=== PATIENT | female | born 1935 | race Caucasian/White ===

== ENCOUNTER → 2017-03-06 | Outpatient (CLI) | payer MEDICARE ==
[~2017-03-06] MED LIST: BUSP5 PO; CYCL10 PO; ESCI10 PO; ONDA4ODT MM; PANT40 PO
[2017-03-06 20:28] LABS: BASOPHILS ABSOLUTE AUTO 0.02 K/mm3 (0.00-0.23); BASOPHILS PERCENT AUTO 0 % (0-2); EOSINOPHILS ABSOLUTE AUTO 0.15 K/mm3 (0.00-0.68); EOSINOPHILS PERCENT AUTO 3 % (0-6); Hematocrit 28.9 % (33.0-51.0); Hemoglobin 9.1 g/dL (11.5-16.0); IMMATURE GRAN ABSOLUTE AUTO 0.01 K/mm3 (0.00-0.10); IMMATURE GRAN PERCENT AUTO 0 % (0-1); LYMPHOCYTES ABSOLUTE AUTO 1.74 K/mm3 (0.84-5.20); LYMPHOCYTES PERCENT AUTO 39 % (21-46); MONOCYTES ABSOLUTE AUTO 0.44 K/mm3 (0.16-1.47); MONOCYTES PERCENT AUTO 10 % (4-13); Mean Corpuscular HGB 26.9 pg (26.0-34.0); Mean Corpuscular HGB Conc 31.5 g/dL (31.5-36.5); Mean Corpuscular Volume 86 fL (80-100); Mean Platelet Volume 10.3 fL (9.1-12.4); NEUTROPHILS ABSOLUTE AUTO 2.13 K/mm3 (1.96-9.15); NEUTROPHILS PERCENT AUTO 48 % (41-73); Platelet Count 292 K/mm3 (150-400); RDW Coefficient Variation 14.4 % (11.7-14.2); RDW Standard Deviation 45.3 fL (35.1-46.3); Red Blood Cell Count 3.38 M/mm3 (3.80-5.20); White Blood Cell Count 4.49 K/mm3 (4.00-11.30)
[2017-03-06 21:12] LABS: Alanine Aminotransfer (ALT/SGP 22 U/L (12-78); Albumin, Blood 3.8 g/dL (3.4-5.0); Alk Phos 85 U/L (50-136); Anion Gap 10 mmol/L (6-16); Aspartate Aminotrans (AST/SGOT 18 U/L (12-37); Bilirubin, Total 0.3 mg/dL (0.1-1.0); Blood Urea Nitrogen 15 mg/dL (8-24); Bun/Creatinine Ratio 24.5 (12.0-20.0); CO2, Blood 24 mmol/L (21-32); Calcium, Blood 9.2 mg/dL (8.5-10.1); Chloride, Blood 107 mmol/L (98-108); Creatinine, Blood 0.61 mg/dL (0.40-1.00); Globulin, Blood 3.9 g/dL (2.2-4.0); Glomerular Filtration Rate >60 (60-); Glucose, Blood 99 mg/dL (70-99); Potassium, Blood 3.9 mmol/L (3.5-5.5); Sodium, Blood 141 mmol/L (136-145); Total Protein, Blood 7.7 g/dL (6.4-8.2)
== END ==
LOC: LAB SHORT 16:29 → LAB 16:29
PROVIDERS: Nurse Practitioner Family
DX: D64.9 Anemia, unspecified (principal)
CPT/HCPCS: 80053; 85025

== ENCOUNTER → 2017-05-30 | Outpatient (CLI) | payer MEDICARE ==
[2017-05-30 16:41] LABS: BASOPHILS ABSOLUTE AUTO 0.01 K/mm3 (0.00-0.23); BASOPHILS PERCENT AUTO 0 % (0-2); EOSINOPHILS ABSOLUTE AUTO 0.04 K/mm3 (0.00-0.68); EOSINOPHILS PERCENT AUTO 1 % (0-6); Hematocrit 30.9 % (33.0-51.0); Hemoglobin 9.7 g/dL (11.5-16.0); IMMATURE GRAN ABSOLUTE AUTO 0.03 K/mm3 (0.00-0.10); IMMATURE GRAN PERCENT AUTO 1 % (0-1); LYMPHOCYTES ABSOLUTE AUTO 1.14 K/mm3 (0.84-5.20); LYMPHOCYTES PERCENT AUTO 23 % (21-46); MONOCYTES ABSOLUTE AUTO 0.41 K/mm3 (0.16-1.47); MONOCYTES PERCENT AUTO 8 % (4-13); Mean Corpuscular HGB 25.7 pg (26.0-34.0); Mean Corpuscular HGB Conc 31.4 g/dL (31.5-36.5); Mean Corpuscular Volume 82 fL (80-100); Mean Platelet Volume 10.9 fL (9.1-12.4); NEUTROPHILS ABSOLUTE AUTO 3.41 K/mm3 (1.96-9.15); NEUTROPHILS PERCENT AUTO 68 % (41-73); Platelet Count 202 K/mm3 (150-400); RDW Coefficient Variation 18.9 % (11.7-14.2); RDW Standard Deviation 56.7 fL (35.1-46.3); Red Blood Cell Count 3.78 M/mm3 (3.80-5.20); White Blood Cell Count 5.04 K/mm3 (4.00-11.30)
[2017-05-30 17:08] LABS: Alanine Aminotransfer (ALT/SGP 25 U/L (12-78); Albumin, Blood 3.9 g/dL (3.4-5.0); Alk Phos 88 U/L (50-136); Amylase, Blood 43 U/L (25-115); Anion Gap 10 mmol/L (6-16); Aspartate Aminotrans (AST/SGOT 24 U/L (12-37); Bilirubin, Total 0.6 mg/dL (0.1-1.0); Blood Urea Nitrogen 24 mg/dL (8-24); Bun/Creatinine Ratio 26.3 (12.0-20.0); CO2, Blood 25 mmol/L (21-32); Calcium, Blood 9.7 mg/dL (8.5-10.1); Chloride, Blood 103 mmol/L (98-108); Creatinine, Blood 0.91 mg/dL (0.40-1.00); Globulin, Blood 3.8 g/dL (2.2-4.0); Glomerular Filtration Rate >60 (60-); Glucose, Blood 126 mg/dL (70-99); Potassium, Blood 3.8 mmol/L (3.5-5.5); Sodium, Blood 138 mmol/L (136-145); Total Protein, Blood 7.7 g/dL (6.4-8.2)
== END | disposition home or self-care (01) ==
LOC: LAB SHORT 16:19 → LAB 16:19
PROVIDERS: Nurse Practitioner Family
DX: R10.9 Unspecified abdominal pain (principal)
CPT/HCPCS: 80053; 82150; 83690; 85025

== ENCOUNTER 2019-02-08 09:04 | Day surgery (SDC) | payer MEDICARE ==
[~2019-02-08] VITALS: Ht 170.2 cm; Wt 57.4 kg
[2019-02-08] MEDS ORDERED: Lisinopril2.5 MG (10:12)
== END 2019-02-08 11:53 | disposition home or self-care (01) ==
LOC: ORSCSDS 09:04
PROVIDERS: Internal Medicine Gastroenterology
PROC: 0DB98ZX Excision of Duodenum, Via Natural or Artificial Opening Endoscopic, Diagnostic (ICD-10-PCS; principal; 2019-02-08 10:15)
PROC: 0DBM8ZX Excision of Descending Colon, Via Natural or Artificial Opening Endoscopic, Diagnostic (ICD-10-PCS; principal; 2019-02-08 10:15)
PROC: 0DB58ZX Excision of Esophagus, Via Natural or Artificial Opening Endoscopic, Diagnostic (ICD-10-PCS; principal; 2019-02-08 10:15)
PROC: 0DBL8ZX Excision of Transverse Colon, Via Natural or Artificial Opening Endoscopic, Diagnostic (ICD-10-PCS; principal; 2019-02-08 10:15)
PROC: 0DB68ZX Excision of Stomach, Via Natural or Artificial Opening Endoscopic, Diagnostic (ICD-10-PCS; principal; 2019-02-08 10:15)
DX: K21.9 Gastro-esophageal reflux disease without esophagitis (principal); D50.9 Iron deficiency anemia, unspecified; D12.4 Benign neoplasm of descending colon; D12.3 Benign neoplasm of transverse colon; K57.30 Diverticulosis of large intestine without perforation or abscess without bleeding; K64.1 Second degree hemorrhoids; K20.9 Esophagitis, unspecified; E11.9 Type 2 diabetes mellitus without complications; I10 Essential (primary) hypertension; Z79.899 Other long term (current) drug therapy
CPT/HCPCS: 82947; 88305; 88312; 88342; J2704; J7120

== ENCOUNTER → 2019-06-07 | Outpatient (CLI) | payer MEDICARE, OTHER ==
[~2019-06-07] MED LIST changes: +Lisinopril2.5 MG
== END | disposition home or self-care (01) ==
LOC: LAB SHORT 12:23 → LAB 12:23
DX: D51.8 Other vitamin B12 deficiency anemias (principal)
CPT/HCPCS: 82607; 82746

== ENCOUNTER 2019-07-03 23:29 | Inpatient (IN) | payer MEDICARE, OTHER ==
[~2019-07-03] VITALS: Ht 175.3 cm; Wt 56.7 kg
[2019-07-03 23:49] LABS: BASOPHILS ABSOLUTE AUTO 0.02 K/mm3 (0.00-0.23); BASOPHILS PERCENT AUTO 0 % (0-2); EOSINOPHILS PERCENT AUTO 2 % (0-6); Hematocrit 32.1 % (33.0-51.0); Hemoglobin 10.2 g/dL (11.5-16.0); IMMATURE GRAN ABSOLUTE AUTO 0.04 K/mm3 (0.00-0.10); IMMATURE GRAN PERCENT AUTO 1 % (0-1); LYMPHOCYTES PERCENT AUTO 25 % (21-46); MONOCYTES ABSOLUTE AUTO 0.44 K/mm3 (0.16-1.47); MONOCYTES PERCENT AUTO 8 % (4-13); Mean Corpuscular HGB 30.1 pg (26.0-34.0); Mean Corpuscular HGB Conc 31.8 g/dL (31.5-36.5); Mean Corpuscular Volume 95 fL (80-100); Mean Platelet Volume 9.7 fL (9.1-12.4); NEUTROPHILS PERCENT AUTO 64 % (41-73); Platelet Count 215 K/mm3 (150-400); RDW Coefficient Variation 14.3 % (11.7-14.2); RDW Standard Deviation 49.6 fL (35.1-46.3); Red Blood Cell Count 3.39 M/mm3 (3.80-5.20)
[2019-07-04 00:06] LABS: Alanine Aminotransfer (ALT/SGP 16 U/L (12-78); Albumin, Blood 3.6 g/dL (3.4-5.0); Albumin/Globulin Ratio 0.9 (0.8-1.8); Alk Phos 98 U/L (50-136); Anion Gap 10 mmol/L (6-16); Aspartate Aminotrans (AST/SGOT 17 U/L (12-37); Bilirubin, Total 0.3 mg/dL (0.1-1.0); Blood Urea Nitrogen 20 mg/dL (8-24); Bun/Creatinine Ratio 30.1 (12.0-20.0); CO2, Blood 22 mmol/L (21-32); Chloride, Blood 111 mmol/L (98-108); Creatinine, Blood 0.66 mg/dL (0.40-1.00); Globulin, Blood 3.9 g/dL (2.2-4.0); Glomerular Filtration Rate >60 (60-); Glucose, Blood 123 mg/dL (70-99); Potassium, Blood 3.6 mmol/L (3.5-5.5); Sodium, Blood 143 mmol/L (136-145); Total Protein, Blood 7.5 g/dL (6.4-8.2); Troponin I <0.015 ng/mL (0.000-0.040)
[2019-07-04 00:12] LABS: International Normalized Ratio 1.02; Prothrombin Time Results 10.9 Sec (9.7-11.5)
[2019-07-04] MEDS ORDERED: BUSP5 PO (01:01)
[2019-07-04] MEDS ORDERED: METF500 PO (01:01)
[2019-07-04] MEDS ORDERED: SERT50 PO (01:01)
[2019-07-04] MEDS ORDERED: Lisinopril2.5 MG PO (01:01)
[2019-07-04] MEDS ORDERED: OMEP20ER PO (01:01)
[2019-07-04 08:56] LABS: BASOPHILS ABSOLUTE AUTO 0.01 K/mm3 (0.00-0.23); BASOPHILS PERCENT AUTO 0 % (0-2); EOSINOPHILS ABSOLUTE AUTO 0.12 K/mm3 (0.00-0.68); EOSINOPHILS PERCENT AUTO 2 % (0-6); Hematocrit 29.1 % (33.0-51.0); Hemoglobin 9.3 g/dL (11.5-16.0); IMMATURE GRAN ABSOLUTE AUTO 0.02 K/mm3 (0.00-0.10); IMMATURE GRAN PERCENT AUTO 0 % (0-1); LYMPHOCYTES ABSOLUTE AUTO 1.23 K/mm3 (0.84-5.20); LYMPHOCYTES PERCENT AUTO 25 % (21-46); MONOCYTES ABSOLUTE AUTO 0.38 K/mm3 (0.16-1.47); MONOCYTES PERCENT AUTO 8 % (4-13); Mean Corpuscular HGB 29.8 pg (26.0-34.0); Mean Corpuscular Volume 93 fL (80-100); Mean Platelet Volume 9.5 fL (9.1-12.4); NEUTROPHILS ABSOLUTE AUTO 3.15 K/mm3 (1.96-9.15); NEUTROPHILS PERCENT AUTO 64 % (41-73); Platelet Count 184 K/mm3 (150-400); RDW Coefficient Variation 14.5 % (11.7-14.2); RDW Standard Deviation 48.8 fL (35.1-46.3); Red Blood Cell Count 3.12 M/mm3 (3.80-5.20); White Blood Cell Count 4.91 K/mm3 (4.00-11.30)
[2019-07-04 09:15] LABS: Anion Gap 10 mmol/L (6-16); Blood Urea Nitrogen 18 mg/dL (8-24); Bun/Creatinine Ratio 32.5 (12.0-20.0); CO2, Blood 21 mmol/L (21-32); Calcium, Blood 8.7 mg/dL (8.5-10.1); Chloride, Blood 111 mmol/L (98-108); Creatinine, Blood 0.55 mg/dL (0.40-1.00); Glomerular Filtration Rate >60 (60-); Glucose, Blood 118 mg/dL (70-99); Potassium, Blood 3.4 mmol/L (3.5-5.5); Sodium, Blood 142 mmol/L (136-145)
--- NOTE | 2019-07-04 09:29 | NUR ---
PHYSICAL THERAPY EVAL PHYSICAL THERAPY AT BEDSIDE FOR EVAL. CONTINUE POT.
--- NOTE | 2019-07-04 10:00 | NUR ---
FAMILY CALLED PT DAUGHTER,ZAYRA, AND GAVE HER A PHONE UPDATE/POC ON MOM. NO REQUESTS AT THIS TIME. CONTINUE POT.
--- NOTE | 2019-07-04 12:16 | NUR ---
ECHOCARDIOGRAM COMPLETE
--- NOTE | 2019-07-04 13:22 | NUR ---
NOTE PT RESTING QUIETLY. SR NO ECTOPY. VSS. PT SAT UP IN CHAIR AT BEDSIDE TRYING TO PUT HER MAKEUP ON FOR SEVERAL HOURS. CHAIR ALARM WAS TRIGGERED ONCE. PT TRANSFERED BACK TO BED WITH A FWW AND GAIT BELT. GAIT STEADY. PT WAS UNABLE TO VERBALLY ASK TO GET BACK TO BED SHE JUST POINTED AT THE BED AND PATTED IT. SPEACH THERAPY HERE TO SEE PT. HEPARIN GTT INFUSING PER PHARMACY ORDER. NEXT PTT AT 1800. CONTINUE POT.
--- NOTE | 2019-07-04 18:09 | NUR ---
SHE ARRIVED FROM [facility] TO 337 AT 1600. SHE IS OX3. SHE IS AMBULATORY. 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 SHE FOLLOWS INSTRUCTIONS. SHE ANSWERED QUESTIONS APPROPRIATELY THEN HAS GONE OFF ON A TANGENT A COUPLE OF TIMES SEEMINGLY UNCONNECTED TO OUR CURRENT CONVERSATION. NO H/A. DENIES DIZZINESS. ONCE SHE KEPT SAYING YES TO NEEDING TO GO TO THE BATHROOM BUT THE STATION BAGGAGE AGENT FIGURED OUT SHE REALLY MEANT NO. SHE REMAINS STRICTLY NPO. SHE FAILED HER SWALLOW EVAL EARLIER TODAY. MALIK. SHE ANSWERED HER PHONE WHEN IT RANG AND SAID HELLO AND CHEERFULLY "HOW ARE YOU". I DID NOT LISTEN TO ANY FURTHER CONVERSATION TO KNOW IF IT WAS NORMAL. HER ECHO WAS DONE EARLIER TODAY.
--- NOTE | 2019-07-04 18:41 | NUR ---
JUST RECEIVED PTT RESULT OF 41.6. WILL WATCH FOR TITRATION ORDERS AND PASS ON TO SALES AND MARKETING ASSISTANT NURSE.
[2019-07-05 00:50] LABS: CHOL/HDL RATIO 2.8; Cholesterol 107 mg/dL (50-200); HDL Cholesterol 38 mg/dL (>39); LDL/HDL RATIO 1.4; Low Density Lipoprotein Chol 55 mg/dL (0-110); Triglycerides 72 mg/dL (30-160); Very Low Density Lipoprot Chol 14 mg/dL (6-32)
--- NOTE | 2019-07-05 05:51 | NUR ---
SHIFT SUMMARY PT HAS RESTED WELL THIS SHIFT. SHE HAS BEEN OOB A COUPLE OF TIMES THIS SHIFT AND HAS BEEN STEADY ON HER FEET. NEURO ASSESSMENTS PERFORMED AND FOR THE MOST PART UNREMARKABLE. VERY SLIGHT WEAKNESS ON THE RIGHT SIDE COMPARED TO THE LEFT, THIS WAS ALSO NOTED BY LOLA RN. PT IS A/OX4, ANSWERS MY QUESTIONS APPROPRIATLY. SOME EXPRESSIVE APHASIA. VITALS STABLE. HEPARIN GTT INFUSING PER ORDERS. TITRATION REQUIRED PER PHARMACY ORDERS. NO ACUTE CHANGES TO REPORT OVERNIGHT. BED IN LOWEST POSITION. CALL LIGHT WITHIN REACH. WILL CONTINUE TO MONITOR AND REPORT TO ONCOMING RN.
[2019-07-05] MEDS ORDERED: ASPI325 PO (17:29)
[2019-07-05] MEDS ORDERED: SENN187 PO (17:30)
--- NOTE | 2019-07-05 18:55 | NUR ---
PT DISCHARGED PT VERBALIZED UNDERSTANDING OF THE DC INSTRUCTIONS, THE PTS DAUGHTER WAS CONTACTED PRIOR TO DC, AND WAS INSTRUCTED SOME ON THE PTS ORAL INTAKE ASPIRATION PRECAUTIONS, HOME HEALTH SEEN THE PT PRIOR TO DC, THE PT APPEARS TO BE BREATHING EASILY ON RA, THE PTS PRESCRIPTIONS WERE FAXED TO [facility], THE PT IS AWAITING THE DAUGHTER FOR BLASTING COAL MINER
--- NOTE | 2019-07-05 19:30 | NUR ---
1929 PATIENT D/C'D, JOSE PASTRANA WILL ESCORT DOWNSTAIRS TO ER DEPARTMENT VIA WHEELCHAIR. SO, PATIENT CAN WAIT FOR HER DAUGHTER.
== END 2019-07-05 19:36 | disposition home health service (06) | DRG 66 ==
LOC: ER 23:29 → PCU 23:30 → ER 07-04 01:44 → PCU 07-04 01:44 → MEDS 07-04 16:00
PROVIDERS: Emergency Medicine; Internal Medicine; ADMIT Internal Medicine
DX: I63.512 Cerebral infarction due to unspecified occlusion or stenosis of left middle cerebral artery (principal); R47.01 Aphasia; R29.810 Facial weakness; R13.10 Dysphagia, unspecified; R40.2411 Glasgow coma scale score 13-15, in the field [EMT or ambulance]; E11.9 Type 2 diabetes mellitus without complications; I10 Essential (primary) hypertension; F32.9 Major depressive disorder, single episode, unspecified; K21.9 Gastro-esophageal reflux disease without esophagitis; B19.20 Unspecified viral hepatitis C without hepatic coma; Z87.891 Personal history of nicotine dependence
CPT/HCPCS: 36415; 70450; 70496; 70498; 71045; 80048; 80053; 80061; 82947; 83036; 84443; 84484; 85025; 85610; 85730; 92526; 92610; 93005; 93010; 93306; 96365; 96366; 96376; 97110; 97162; 97166; 97535; 99285-25; G0378; J1644; Q9967

== ENCOUNTER 2020-08-23 15:46 | Emergency (ER) | payer MEDICARE, OTHER ==
[~2020-08-23] VITALS: Ht 165.1 cm; Wt 68.0 kg
[~2020-08-23 15:46] MED LIST changes: +ASPI325 PO; +Lisinopril2.5 MG PO; +METF500 PO; +OMEP20ER PO; +SENN187 PO; +SERT50 PO
== END 2020-08-23 17:55 | disposition home or self-care (01) ==
LOC: ER 15:46
DX: S61.214A Laceration without foreign body of right ring finger without damage to nail, initial encounter (principal); K21.9 Gastro-esophageal reflux disease without esophagitis; I10 Essential (primary) hypertension; E11.9 Type 2 diabetes mellitus without complications; Z79.899 Other long term (current) drug therapy; W49.04XA Ring or other jewelry causing external constriction, initial encounter
CPT/HCPCS: 12001; 99282-25

== ENCOUNTER → 2021-01-02 | Outpatient (CLI) | payer MEDICARE, OTHER ==
[~2021-01-02] MED LIST changes: +BUSPIRONE HCL7.5 M1 PO; +HYDROCODONE-AC1 EA15 PO; -METF500 PO; +METF500C PO; +MOBIC15 MG PO; +SERT100 PO; -SERT50 PO; +TAMSULOSIN HCL0.4 M1 PO; +TRAM50 PO
== END | disposition home or self-care (01) ==
LOC: LAB SHORT 15:30 → LAB 15:30
DX: N39.0 Urinary tract infection, site not specified (principal)
CPT/HCPCS: 87086; 87147

== ENCOUNTER 2021-01-07 22:58 | Observation (INO) | payer MEDICARE, OTHER ==
[~2021-01-07] VITALS: Ht 167.6 cm; Wt 57.3 kg
[~2021-01-07 22:58] MED LIST changes: -BUSPIRONE HCL7.5 M1 PO; -HYDROCODONE-AC1 EA15 PO; -METF500C PO; -MOBIC15 MG PO; -OMEP20ER PO; -SERT100 PO; -TAMSULOSIN HCL0.4 M1 PO; -TRAM50 PO
[2021-01-08 00:33] LABS: BASOPHILS ABSOLUTE AUTO 0.02 K/mm3 (0.00-0.23); BASOPHILS PERCENT AUTO 0 % (0-2); EOSINOPHILS ABSOLUTE AUTO 0.07 K/mm3 (0.00-0.68); EOSINOPHILS PERCENT AUTO 1 % (0-6); Hematocrit 33.8 % (33.0-51.0); IMMATURE GRAN ABSOLUTE AUTO 0.05 K/mm3 (0.00-0.10); IMMATURE GRAN PERCENT AUTO 1 % (0-1); LYMPHOCYTES ABSOLUTE AUTO 0.98 K/mm3 (0.84-5.20); LYMPHOCYTES PERCENT AUTO 14 % (21-46); MONOCYTES ABSOLUTE AUTO 0.63 K/mm3 (0.16-1.47); MONOCYTES PERCENT AUTO 9 % (4-13); Mean Corpuscular HGB Conc 32.5 g/dL (31.5-36.5); Mean Corpuscular Volume 92 fL (80-100); Mean Platelet Volume 10.6 fL (9.1-12.4); NEUTROPHILS ABSOLUTE AUTO 5.38 K/mm3 (1.96-9.15); NEUTROPHILS PERCENT AUTO 76 % (41-73); Platelet Count 158 K/mm3 (150-400); RDW Coefficient Variation 13.7 % (11.7-14.2); RDW Standard Deviation 46.6 fL (35.1-46.3); Red Blood Cell Count 3.67 M/mm3 (3.80-5.20); White Blood Cell Count 7.13 K/mm3 (4.00-11.30)
[2021-01-08 01:01] LABS: Free Thyroxine 1.03 ng/dL (0.70-1.60); Magnesium, Blood 1.5 mg/dL (1.6-2.4); Thyroid Stimulating Hormone 0.704 uIU/mL (0.360-4.800); Troponin I <0.015 ng/mL (0.000-0.040)
[2021-01-08 01:03] LABS: Alanine Aminotransfer (ALT/SGP 23 U/L (12-78); Albumin, Blood 3.6 g/dL (3.4-5.0); Alk Phos 87 U/L (50-136); Anion Gap 7 mmol/L (6-16); Aspartate Aminotrans (AST/SGOT 16 U/L (12-37); Bilirubin, Total 0.5 mg/dL (0.1-1.0); Blood Urea Nitrogen 15 mg/dL (8-24); Bun/Creatinine Ratio 18.6 (12.0-20.0); CO2, Blood 26 mmol/L (21-32); Calcium, Blood 9.1 mg/dL (8.5-10.1); Chloride, Blood 106 mmol/L (98-108); Creatinine, Blood 0.81 mg/dL (0.40-1.00); Globulin, Blood 3.6 g/dL (2.2-4.0); Glomerular Filtration Rate >60 (60-); Glucose, Blood 143 mg/dL (70-99); Potassium, Blood 3.1 mmol/L (3.5-5.5); Sodium, Blood 139 mmol/L (136-145); Total Protein, Blood 7.2 g/dL (6.4-8.2)
[2021-01-08 11:12] LABS: BASOPHILS ABSOLUTE AUTO 0.03 K/mm3 (0.00-0.23); BASOPHILS PERCENT AUTO 0 % (0-2); EOSINOPHILS ABSOLUTE AUTO 0.09 K/mm3 (0.00-0.68); EOSINOPHILS PERCENT AUTO 1 % (0-6); Hematocrit 35.7 % (33.0-51.0); Hemoglobin 11.2 g/dL (11.5-16.0); IMMATURE GRAN ABSOLUTE AUTO 0.05 K/mm3 (0.00-0.10); IMMATURE GRAN PERCENT AUTO 1 % (0-1); LYMPHOCYTES ABSOLUTE AUTO 1.15 K/mm3 (0.84-5.20); LYMPHOCYTES PERCENT AUTO 13 % (21-46); MONOCYTES ABSOLUTE AUTO 0.59 K/mm3 (0.16-1.47); MONOCYTES PERCENT AUTO 7 % (4-13); Mean Corpuscular HGB Conc 31.4 g/dL (31.5-36.5); Mean Corpuscular Volume 96 fL (80-100); NEUTROPHILS ABSOLUTE AUTO 6.69 K/mm3 (1.96-9.15); NEUTROPHILS PERCENT AUTO 78 % (41-73); Platelet Count 155 K/mm3 (150-400); RDW Standard Deviation 49.2 fL (35.1-46.3); Red Blood Cell Count 3.73 M/mm3 (3.80-5.20)
[2021-01-08 11:27] LABS: Alanine Aminotransfer (ALT/SGP 25 U/L (12-78); Albumin, Blood 3.3 g/dL (3.4-5.0); Albumin/Globulin Ratio 0.9 (0.8-1.8); Alk Phos 85 U/L (50-136); Anion Gap 8 mmol/L (6-16); Aspartate Aminotrans (AST/SGOT 20 U/L (12-37); Bilirubin, Total 0.6 mg/dL (0.1-1.0); Blood Urea Nitrogen 12 mg/dL (8-24); Bun/Creatinine Ratio 17.1 (12.0-20.0); CO2, Blood 20 mmol/L (21-32); CPK Creatine Kinase 96 U/L (26-193); Chloride, Blood 109 mmol/L (98-108); Globulin, Blood 3.6 g/dL (2.2-4.0); Glomerular Filtration Rate >60 (60-); Glucose, Blood 147 mg/dL (70-99); Potassium, Blood 3.7 mmol/L (3.5-5.5); Sodium, Blood 137 mmol/L (136-145); Total Protein, Blood 6.9 g/dL (6.4-8.2); Troponin I <0.015 ng/mL (0.000-0.040)
[2021-01-08] MEDS ORDERED: HYDROCODONE-AC1 EA15 PO (15:02)
[2021-01-08] MEDS ORDERED: BUSPIRONE HCL7.5 M1 PO (15:03)
[2021-01-08] MEDS ORDERED: TRAM50 PO (15:03)
[2021-01-08] MEDS ORDERED: MOBIC15 MG PO (15:04)
[2021-01-08] MEDS ORDERED: METF500C PO (15:04)
[2021-01-08] MEDS ORDERED: OMEP20ER PO (15:05)
[2021-01-08] MEDS ORDERED: SERT100 PO (15:05)
[2021-01-08] MEDS ORDERED: TAMSULOSIN HCL0.4 M1 PO (15:06)
[2021-01-08 16:23] LABS: CPK Creatine Kinase 65 U/L (26-193); Troponin I <0.015 ng/mL (0.000-0.040)
--- NOTE | 2021-01-08 19:27 | NUR ---
85 year old female admitted with AFIB to room 353. Patient is alert and oriented x1 with some confusion and hard of hearing.Unable to provide any history. Vital signs are stable. No skin issue noted. Continue on tele monitor , normal sinus rthym at 92 . NS infusing at 100 ml/hr.On room air , no SOB noted. one person assist with SBA. Bed alarm on at all time. Unable to use call buttom . Continue to monitor.
[2021-01-08 22:44] LABS: Source, Urine Clean Catch
[2021-01-08 22:47] LABS: Appearance, Urine Clear (Clear); Bilirubin, Urine Neg (Neg); Blood, Urine 1+ (Neg); Color, Urine Yellow (P-Yellow); Glucose Qualitative, Urine Neg (Neg); Ketones, Urine Neg (Neg); Leukocyte Esterase, Urine 3+ (Neg); Nitrite, Urine Neg (Neg); Protein, Urine 1+ (Neg); Urobilinogen, Urine NORM (Normal)
[2021-01-08 22:53] LABS: Bacteria Many /hpf; Squamous Epithelial Cells Mod /hpf (Few); White Blood Cells, Urine 50-100 /hpf (0-5)
[2021-01-08 22:54] LABS: Hyaline Casts 0-2 /lpf (0-2)
--- NOTE | 2021-01-09 00:36 | NUR ---
lt hand IV dc prior to this shift
[2021-01-09] MEDS ORDERED: Nitrofurantoin100 M1 PO (01:59)
[2021-01-09 05:14] LABS: BASOPHILS ABSOLUTE AUTO 0.03 K/mm3 (0.00-0.23); BASOPHILS PERCENT AUTO 0 % (0-2); EOSINOPHILS ABSOLUTE AUTO 0.13 K/mm3 (0.00-0.68); EOSINOPHILS PERCENT AUTO 2 % (0-6); Hematocrit 31.4 % (33.0-51.0); Hemoglobin 9.9 g/dL (11.5-16.0); IMMATURE GRAN ABSOLUTE AUTO 0.04 K/mm3 (0.00-0.10); IMMATURE GRAN PERCENT AUTO 1 % (0-1); LYMPHOCYTES ABSOLUTE AUTO 1.19 K/mm3 (0.84-5.20); LYMPHOCYTES PERCENT AUTO 17 % (21-46); MONOCYTES ABSOLUTE AUTO 0.62 K/mm3 (0.16-1.47); MONOCYTES PERCENT AUTO 9 % (4-13); Mean Corpuscular HGB 29.7 pg (26.0-34.0); Mean Corpuscular HGB Conc 31.5 g/dL (31.5-36.5); Mean Corpuscular Volume 94 fL (80-100); Mean Platelet Volume 10.9 fL (9.1-12.4); NEUTROPHILS ABSOLUTE AUTO 4.81 K/mm3 (1.96-9.15); NEUTROPHILS PERCENT AUTO 71 % (41-73); Platelet Count 141 K/mm3 (150-400); RDW Coefficient Variation 14.1 % (11.7-14.2); RDW Standard Deviation 48.5 fL (35.1-46.3); Red Blood Cell Count 3.33 M/mm3 (3.80-5.20); White Blood Cell Count 6.82 K/mm3 (4.00-11.30)
[2021-01-09 05:34] LABS: Albumin, Blood 2.9 g/dL (3.4-5.0); Anion Gap 6 mmol/L (6-16); Blood Urea Nitrogen 12 mg/dL (8-24); Bun/Creatinine Ratio 19.4 (12.0-20.0); CO2, Blood 24 mmol/L (21-32); Calcium, Blood 8.7 mg/dL (8.5-10.1); Chloride, Blood 114 mmol/L (98-108); Creatinine, Blood 0.62 mg/dL (0.40-1.00); Glomerular Filtration Rate >60 (60-); Glucose, Blood 111 mg/dL (70-99); Magnesium, Blood 1.7 mg/dL (1.6-2.4); Phosphorus, Blood 3.2 mg/dL (2.5-4.9); Potassium, Blood 3.7 mmol/L (3.5-5.5); Sodium, Blood 144 mmol/L (136-145)
--- NOTE | 2021-01-09 06:40 | NUR ---
85 year od Female brought to hospital by Daughter for UTI under tx with macrobid bid who had acute confusion. PT recieved IV fluids & drank 1 1/2 ensures. BG requires no sliding scale insulin. PT is very hard of hearing but able to communicate. Fall precautions PT weak & impulsive. Edentulous not wearing hearing aides. DTR says PT has outPT support caregivers hours.
[2021-01-09] MEDS ORDERED: CEFD300 PO (12:34)
[2021-01-09] MEDS ORDERED: METO25 PO (12:35)
[2021-01-09] MEDS ORDERED: VISBIOME 112.51 EACH PO (12:37)
[2021-01-09] MEDS ORDERED: ASPI81CH PO (12:37)
--- NOTE | 2021-01-09 14:45 | NUR ---
Alert and oriented x2 , hard of hearing and forgetful. Denies any pain. No shortness of breath noted. Denies any chest pain, dizziness , headache , nausea or fever. vital signs are stable on sitting and lying . Continue on tele monitor , slightly tachy at 100. Started on omnicef 300 mg po for UTI, no adverse effect noted. One person assist wiTH ADLs. Jose hose was put on before discharged . Patient discharged home in stable condition and discharged instruction given to joel who acknowledged instruction.
== END 2021-01-09 14:44 | disposition home or self-care (01) ==
LOC: ER 22:58 → ERHOLD 23:00 → ER 01-08 02:41 → MEDS 01-08 17:52
PROVIDERS: Internal Medicine; Student in an Organized Health Care Education/Training Program; ADMIT Internal Medicine
DX: I48.91 Unspecified atrial fibrillation (principal); I95.1 Orthostatic hypotension; E87.6 Hypokalemia; E83.42 Hypomagnesemia; K21.9 Gastro-esophageal reflux disease without esophagitis; E11.9 Type 2 diabetes mellitus without complications; I10 Essential (primary) hypertension; Z86.73 Personal history of transient ischemic attack (TIA), and cerebral infarction without residual deficits; Z79.82 Long term (current) use of aspirin; Z79.899 Other long term (current) drug therapy
CPT/HCPCS: 36415; 70450; 71045; 80053; 80069; 81001; 82550; 82947; 83036; 83735; 84439; 84443; 84484; 85025; 87086; 87147; 90686; 93005; 93010; 93306; 96365; 96366; 96375; 97161; 99285-25; A9270; G0008; G0378; J3475; J7030

== ENCOUNTER 2021-05-09 17:12 | Inpatient (IN) | payer MEDICARE, OTHER ==
[~2021-05-09] VITALS: Ht 167.6 cm; Wt 47.4 kg
[~2021-05-09 17:12] MED LIST changes: +ASPI81CH PO; +BUSPIRONE HCL7.5 M1 PO; +CEFD300 PO; +HYDROCODONE-AC1 EA15 PO; +METF500C PO; +METO25 PO; +MOBIC15 MG PO; +Nitrofurantoin100 M1 PO; +OMEP20ER PO; +SERT100 PO; +TAMSULOSIN HCL0.4 M1 PO; +TRAM50 PO; +VISBIOME 112.51 EACH PO
[2021-05-09 17:45] LABS: BASOPHILS ABSOLUTE AUTO 0.03 K/mm3 (0.00-0.23); BASOPHILS PERCENT AUTO 0 % (0-2); EOSINOPHILS ABSOLUTE AUTO 0.03 K/mm3 (0.00-0.68); EOSINOPHILS PERCENT AUTO 0 % (0-6); Hematocrit 31.1 % (33.0-51.0); IMMATURE GRAN ABSOLUTE AUTO 0.08 K/mm3 (0.00-0.10); IMMATURE GRAN PERCENT AUTO 1 % (0-1); LYMPHOCYTES ABSOLUTE AUTO 0.77 K/mm3 (0.84-5.20); LYMPHOCYTES PERCENT AUTO 9 % (21-46); MONOCYTES ABSOLUTE AUTO 0.74 K/mm3 (0.16-1.47); MONOCYTES PERCENT AUTO 9 % (4-13); Mean Corpuscular HGB 30.2 pg (26.0-34.0); Mean Corpuscular HGB Conc 32.2 g/dL (31.5-36.5); Mean Corpuscular Volume 94 fL (80-100); Mean Platelet Volume 11.1 fL (9.1-12.4); NEUTROPHILS ABSOLUTE AUTO 6.59 K/mm3 (1.96-9.15); NEUTROPHILS PERCENT AUTO 80 % (41-73); Platelet Count 122 K/mm3 (150-400); RDW Coefficient Variation 15.9 % (11.7-14.2); RDW Standard Deviation 55.3 fL (35.1-46.3); Red Blood Cell Count 3.31 M/mm3 (3.80-5.20); White Blood Cell Count 8.24 K/mm3 (4.00-11.30)
[2021-05-09 18:05] LABS: Albumin/Globulin Ratio 1.2 (0.8-1.8); Bilirubin, Total 0.8 mg/dL (0.1-1.0); Bun/Creatinine Ratio 33.1 (12.0-20.0); Calcium, Blood 9.1 mg/dL (8.5-10.1); Creatinine, Blood 0.94 mg/dL (0.40-1.00); Globulin, Blood 3.3 g/dL (2.2-4.0); Potassium, Blood 3.9 mmol/L (3.5-5.5); Total Protein, Blood 7.3 g/dL (6.4-8.2)
[2021-05-09 18:14] LABS: International Normalized Ratio 1.14; Prothrombin Time Results 11.9 Sec (9.7-11.5)
[2021-05-09] MEDS ORDERED: ZOLOFT50 MG PO (18:32)
[2021-05-09] MEDS ORDERED: HYDROCODONE-AC1 EA16 PO (18:32)
[2021-05-09 19:52] LABS: Influenza A, PCR NEGATIVE (NEGATIVE); Influenza B, PCR NEGATIVE (NEGATIVE); Resp Syncytial Virus, PCR NEGATIVE (NEGATIVE); SARS-Cov-2 (COVID-19) PCR, MMC NEGATIVE (NEGATIVE)
[2021-05-10 04:46] LABS: BASOPHILS ABSOLUTE AUTO 0.02 K/mm3 (0.00-0.23); BASOPHILS PERCENT AUTO 0 % (0-2); EOSINOPHILS ABSOLUTE AUTO 0.04 K/mm3 (0.00-0.68); EOSINOPHILS PERCENT AUTO 1 % (0-6); Hematocrit 28.6 % (33.0-51.0); Hemoglobin 9.2 g/dL (11.5-16.0); IMMATURE GRAN ABSOLUTE AUTO 0.04 K/mm3 (0.00-0.10); IMMATURE GRAN PERCENT AUTO 1 % (0-1); LYMPHOCYTES ABSOLUTE AUTO 1.07 K/mm3 (0.84-5.20); LYMPHOCYTES PERCENT AUTO 14 % (21-46); MONOCYTES ABSOLUTE AUTO 0.77 K/mm3 (0.16-1.47); MONOCYTES PERCENT AUTO 10 % (4-13); Mean Corpuscular HGB 30.2 pg (26.0-34.0); Mean Corpuscular HGB Conc 32.2 g/dL (31.5-36.5); Mean Corpuscular Volume 94 fL (80-100); Mean Platelet Volume 11.5 fL (9.1-12.4); NEUTROPHILS ABSOLUTE AUTO 5.56 K/mm3 (1.96-9.15); NEUTROPHILS PERCENT AUTO 74 % (41-73); Platelet Count 120 K/mm3 (150-400); RDW Coefficient Variation 15.9 % (11.7-14.2); RDW Standard Deviation 54.8 fL (35.1-46.3); Red Blood Cell Count 3.05 M/mm3 (3.80-5.20)
[2021-05-10 04:59] LABS: Alanine Aminotransfer (ALT/SGP 21 U/L (12-78); Albumin, Blood 3.8 g/dL (3.4-5.0); Albumin/Globulin Ratio 1.2 (0.8-1.8); Alk Phos 68 U/L (50-136); Anion Gap 7 mmol/L (6-16); Aspartate Aminotrans (AST/SGOT 11 U/L (12-37); Bilirubin, Total 0.7 mg/dL (0.1-1.0); Blood Urea Nitrogen 33 mg/dL (8-24); Bun/Creatinine Ratio 50.9 (12.0-20.0); CO2, Blood 24 mmol/L (21-32); Chloride, Blood 109 mmol/L (98-108); Creatinine, Blood 0.65 mg/dL (0.40-1.00); Globulin, Blood 3.1 g/dL (2.2-4.0); Glomerular Filtration Rate >60 (60-); Glucose, Blood 142 mg/dL (70-99); Potassium, Blood 3.7 mmol/L (3.5-5.5); Sodium, Blood 140 mmol/L (136-145); Total Protein, Blood 6.9 g/dL (6.4-8.2)
--- NOTE | 2021-05-10 05:32 | NUR ---
SUMMARY PT ARRIVED TO FLOOR IN NO DISTRESS. PT DISCOMFORT HAS BEEN MANAGED WELL. PT IS EXTREMELY HARD OF HEARING AND AT TIMES CONFUSED. PT IS PLESANT AND COOPERATIVE. PT HAS BEEN ABLE TO SLEEP THIS SHIFT. PT HAS BEEN NPO SINCE ARRIVING TO FLOOR. PT DID HAVE NOTED A-FIB IN 130'S DR WOODWARD WAS CALLED AND HE ORDERED CARDIZEM FOR PT. PT RATE HAS BEEN IN 90'S. PT CURRENTLY AWAKE AND RESTING COMFORTABLY. CALL LIGHT IN REACH AND BED ALARM ON.
--- NOTE | 2021-05-10 08:42 | NUR ---
[address] DE LA PAZ REGARDING PT HR 118-140 AND A FIB. NEW ORDERS RECEIVED
--- NOTE | 2021-05-10 09:36 | NUR ---
PT REPORTS PAIN TO LEFT LEG. MEDICATED WITH FENTANYL. NOTIFIED BY ACADEMIC ADMINISTRATOR OF PTS HEARTRATE HIGH 150, MEDICATED PER ORDERS
--- NOTE | 2021-05-10 10:14 | NUR ---
spoke with dr lilly, anesthesia, regarding this patient. pt will not be going to OR today. contacted patients daughter to give her update on her mother and that she will not be having surgery today
--- NOTE | 2021-05-10 11:11 | NUR ---
PT FREQUENTLY SPITTING UP CLEAR SECRETIONS. PT WILL NOT ANSWER ME WHEN ASKING HER IF SHE IS NAUSEATED ZOFRAN GIVEN
--- NOTE | 2021-05-10 12:08 | NUR ---
1145 to day surgery via bed. digoxin infusing. k rider sent to day surgery with aramis. notified pts daughter via phone that patient is scheduled for surgery today
--- NOTE | 2021-05-10 14:54 | NUR ---
1445 RETURNED TO ROOM. SLEEPING OPENS EYES TO VERBAL STIMULI, DOES NOT ANSWER QUESTIONS. RIGHT HIP DRESSING X2 DRY AND INTACT. CONT BIOX PLACED. PALPABLE PEDAL PULSES
--- NOTE | 2021-05-10 18:09 | NUR ---
PT SLEEPING SINCE RETURNED FROM OR, OPENS EYES TO VERBAL STIMULI. PTS DAUGHTER ABLE TO FEED PATIENT A FEW BITES OF DINNER. SOFT DIET ORDERED PER DAUGHTERS REQUEST TELLS ME HER MOM HAS SOME DIFFICULTY SWALLOWING POST PAST CVA. RIGHT HIP DRESSING X2 CLEAN, DRY AND INTACT. PT REMAINS IN AFIB WITH RATE CURRENTLY 104
[2021-05-11 04:53] LABS: BASOPHILS ABSOLUTE AUTO 0.01 K/mm3 (0.00-0.23); BASOPHILS PERCENT AUTO 0 % (0-2); EOSINOPHILS PERCENT AUTO 0 % (0-6); Hematocrit 26.2 % (33.0-51.0); Hemoglobin 8.5 g/dL (11.5-16.0); IMMATURE GRAN ABSOLUTE AUTO 0.08 K/mm3 (0.00-0.10); IMMATURE GRAN PERCENT AUTO 1 % (0-1); LYMPHOCYTES ABSOLUTE AUTO 0.83 K/mm3 (0.84-5.20); LYMPHOCYTES PERCENT AUTO 9 % (21-46); MONOCYTES ABSOLUTE AUTO 0.78 K/mm3 (0.16-1.47); MONOCYTES PERCENT AUTO 8 % (4-13); Mean Corpuscular HGB 30.1 pg (26.0-34.0); Mean Corpuscular HGB Conc 32.4 g/dL (31.5-36.5); Mean Corpuscular Volume 93 fL (80-100); Mean Platelet Volume 11.5 fL (9.1-12.4); NEUTROPHILS ABSOLUTE AUTO 7.95 K/mm3 (1.96-9.15); NEUTROPHILS PERCENT AUTO 82 % (41-73); Platelet Count 129 K/mm3 (150-400); RDW Coefficient Variation 15.5 % (11.7-14.2); RDW Standard Deviation 53.1 fL (35.1-46.3); Red Blood Cell Count 2.82 M/mm3 (3.80-5.20); White Blood Cell Count 9.65 K/mm3 (4.00-11.30)
[2021-05-11 05:17] LABS: Anion Gap 8 mmol/L (6-16); Blood Urea Nitrogen 31 mg/dL (8-24); Bun/Creatinine Ratio 48.1 (12.0-20.0); CO2, Blood 22 mmol/L (21-32); Calcium, Blood 8.6 mg/dL (8.5-10.1); Chloride, Blood 110 mmol/L (98-108); Creatinine, Blood 0.64 mg/dL (0.40-1.00); Glomerular Filtration Rate >60 (60-); Glucose, Blood 161 mg/dL (70-99); Magnesium, Blood 1.6 mg/dL (1.6-2.4); Potassium, Blood 4.2 mmol/L (3.5-5.5); Sodium, Blood 140 mmol/L (136-145)
--- NOTE | 2021-05-11 05:55 | NUR ---
SUMMARY PT REMAINS COQUILLE AND CONFUSED AT TIMES. PT TWO DRESSINGS ARE C/D/I. ICE PLACED ORDERED. PT HAD NOT VOIDED AND WAS BLADDER SCANNED [address] LAKE CALLED AND ORDERED STRIGHT CATH AND TO BLADDER SCAN AGAIN IN 8 HRS. 500 ML OF DARK MARCIA URINE WAS REMOVED. PT IS DRINKING SOME PO FLUIDS. PT TX FOR PAIN PER EMAR. PT HAD NO ISSUES WITH HEART RATE THIS SHIFT. PT CURRENTLY SLEEPING AND IN NO DISTRESS. CALL LIGHT IN REACH.
--- NOTE | 2021-05-11 17:39 | NUR ---
SUMMARY PT ORIENTED TO SELF, TALKATIVE AT TIMES BUT CONVERSATION NON SENSICAL. PT PAIN FACE SCORE 2/10. PT IN A FIB HEART RATE LESS THAN 115 THROUGHOUT SHIFT. ANTICIPATE TRANSFER TO [facility] IN AM
--- NOTE | 2021-05-11 17:46 | NUR ---
SPOKE WITH PATIENTS DAUGHTER, ZYARA. ZAYRA IS IN AGREEMENT WITH PLAN TO DISCHARGE TO [facility] IN AM
--- NOTE | 2021-05-12 03:58 | NUR ---
SHIFT SUMMARY NO ACUTE CHANGES TO REPORT THIS SHIFT, PT HAS RESTED MOST OF THE NIGHT. MEDICATED FOR PAIN X1 WITH EFFECT. PT A/O TO SELF ONLY, BUT IS PLESANT AND COOPERATIVE WITH CARE. BED ALARM IN PLACE FOR SAFETY, SHE DOES NOT ATTEMPT TO GET OOB. [facility]. ASSESSMENT REMAINS UNCHANGED. DRESSING TO RIGHT HIP C/D/I. BED IN LOWEST POSITION, CALL LIGHT WITHIN REACH.
[2021-05-12 04:21] LABS: BASOPHILS ABSOLUTE AUTO 0.01 K/mm3 (0.00-0.23); BASOPHILS PERCENT AUTO 0 % (0-2); EOSINOPHILS ABSOLUTE AUTO 0.03 K/mm3 (0.00-0.68); EOSINOPHILS PERCENT AUTO 0 % (0-6); Hematocrit 25.3 % (33.0-51.0); Hemoglobin 8.3 g/dL (11.5-16.0); IMMATURE GRAN ABSOLUTE AUTO 0.07 K/mm3 (0.00-0.10); IMMATURE GRAN PERCENT AUTO 1 % (0-1); LYMPHOCYTES PERCENT AUTO 16 % (21-46); MONOCYTES ABSOLUTE AUTO 0.61 K/mm3 (0.16-1.47); MONOCYTES PERCENT AUTO 7 % (4-13); Mean Corpuscular HGB 30.4 pg (26.0-34.0); Mean Corpuscular HGB Conc 32.8 g/dL (31.5-36.5); Mean Corpuscular Volume 93 fL (80-100); Mean Platelet Volume 11.6 fL (9.1-12.4); NEUTROPHILS ABSOLUTE AUTO 6.44 K/mm3 (1.96-9.15); NEUTROPHILS PERCENT AUTO 75 % (41-73); NRBC ABSOLUTE 0.02 K/mm3 (0.00-0.02); NRBC Auto 0.2 /100 WBC (0.0-0.2); Platelet Count 140 K/mm3 (150-400); RDW Coefficient Variation 15.5 % (11.7-14.2); RDW Standard Deviation 52.8 fL (35.1-46.3); Red Blood Cell Count 2.73 M/mm3 (3.80-5.20); White Blood Cell Count 8.56 K/mm3 (4.00-11.30)
[2021-05-12 04:37] LABS: Anion Gap 7 mmol/L (6-16); Blood Urea Nitrogen 28 mg/dL (8-24); Bun/Creatinine Ratio 50.5 (12.0-20.0); CO2, Blood 23 mmol/L (21-32); Calcium, Blood 8.8 mg/dL (8.5-10.1); Chloride, Blood 111 mmol/L (98-108); Creatinine, Blood 0.56 mg/dL (0.40-1.00); Glomerular Filtration Rate >60 (60-); Glucose, Blood 131 mg/dL (70-99); Magnesium, Blood 1.8 mg/dL (1.6-2.4); Potassium, Blood 3.8 mmol/L (3.5-5.5); Sodium, Blood 141 mmol/L (136-145)
[2021-05-12 06:50] LABS: Influenza A, PCR NEGATIVE (NEGATIVE); Influenza B, PCR NEGATIVE (NEGATIVE); Resp Syncytial Virus, PCR NEGATIVE (NEGATIVE); SARS-Cov-2 (COVID-19) PCR, MMC NEGATIVE (NEGATIVE)
[2021-05-12] MEDS ORDERED: ELIQUIS2.5 MG PO (09:59)
[2021-05-12] MEDS ORDERED: Acetaminophen650 M1 PO (09:59)
[2021-05-12] MEDS ORDERED: BISA5EC PO (10:00)
[2021-05-12] MEDS ORDERED: DOCU100 PO (10:00)
[2021-05-12] MEDS ORDERED: Lopressor 25 mg25 MG PO (10:02)
[2021-05-12] MEDS ORDERED: METO25ER PO (10:03)
[2021-05-12] MEDS ORDERED: TRAM50 PO (10:04)
[2021-05-12] MEDS ORDERED: SENN187 PO (10:04)
--- NOTE | 2021-05-12 11:52 | NUR ---
TRANSFER SUMMARY IV DC'D. REPORT CALLED TO LENKA AT [facility] AT 1100. PT A&OX1 DEMENTIA/CONFUSION/DIFFICULT TO UNDERSTAND VERBAL RESPONSES/ROBINSON, LIV PO-NEEDS ENCOURAGEMENT AND ASSISTANCE WITH MEALS (ATE A GOOD AMOUNT OF BREAKFAST INCLUDING ENSURE - WITH ENC/ASSIST), VOIDING WELL (BSC/ATTENDS ON), AMB W/GB & FWW-STAND PIVOT TO BSC/CHAIR/BED (PT DID A GOOD JOB MAINTAINING TOE TOUCH WB WITH CUES). AQUACEL DRESSING CHANGES Q5D/PRN, NEW DRESSINGS APPLIED TODAY, FU APPT WITH ORTHO SG 2 WKS.
== END 2021-05-12 11:30 | DRG 481 ==
LOC: ER 17:12 → SURS 20:11
PROVIDERS: Emergency Medicine; Family Medicine; Internal Medicine; Orthopaedic Surgery; ADMIT Internal Medicine
PROC: 0QS636Z Reposition Right Upper Femur with Intramedullary Internal Fixation Device, Percutaneous Approach (ICD-10-PCS; principal; 2021-05-10 12:30)
DX: S72.141A Displaced intertrochanteric fracture of right femur, initial encounter for closed fracture (principal); I48.20 Chronic atrial fibrillation, unspecified; Z20.822 Contact with and (suspected) exposure to COVID-19; F03.90 Unspecified dementia, unspecified severity, without behavioral disturbance, psychotic disturbance, mood disturbance, and anxiety; D53.9 Nutritional anemia, unspecified; F32.A Depression, unspecified; K21.9 Gastro-esophageal reflux disease without esophagitis; I10 Essential (primary) hypertension; E11.9 Type 2 diabetes mellitus without complications; Z28.21 Immunization not carried out because of patient refusal; Z86.73 Personal history of transient ischemic attack (TIA), and cerebral infarction without residual deficits; Z98.890 Other specified postprocedural states; Z79.84 Long term (current) use of oral hypoglycemic drugs; Z79.82 Long term (current) use of aspirin; Z79.899 Other long term (current) drug therapy; W18.30XA Fall on same level, unspecified, initial encounter
CPT/HCPCS: 0241U; 36415; 73502; 80048; 80053; 82947; 83735; 85025; 85610; 93005; 93010; 94762; 96374; 96375; 97110; 97162; 97166; 97530; 97535; 99285-25; A9270; C1713; C1769; J0690; J1100; J1160; J1650; J1885; J2270; J2370; J2405; J3010; J3480; J7030

== ENCOUNTER 2021-08-16 20:43 | Emergency (ER) | payer MEDICARE, OTHER ==
[~2021-08-16] VITALS: Ht 170.2 cm; Wt 63.5 kg
[~2021-08-16 20:43] MED LIST changes: +Acetaminophen650 M1 PO; +BISA5EC PO; +DOCU100 PO; +ELIQUIS2.5 MG PO; +HYDROCODONE-AC1 EA16 PO; +Lopressor 25 mg25 MG PO; +METO25ER PO; +ZOLOFT50 MG PO
[2021-08-16 21:13] LABS: BASOPHILS PERCENT AUTO 0 % (0-2); EOSINOPHILS PERCENT AUTO 0 % (0-6); Hematocrit 36.3 % (33.0-51.0); Hemoglobin 11.6 g/dL (11.5-16.0); IMMATURE GRAN ABSOLUTE AUTO 0.02 K/mm3 (0.00-0.10); IMMATURE GRAN PERCENT AUTO 0 % (0-1); LYMPHOCYTES ABSOLUTE AUTO 0.81 K/mm3 (0.84-5.20); LYMPHOCYTES PERCENT AUTO 14 % (21-46); MONOCYTES ABSOLUTE AUTO 0.41 K/mm3 (0.16-1.47); MONOCYTES PERCENT AUTO 7 % (4-13); Mean Corpuscular HGB 27.2 pg (26.0-34.0); Mean Corpuscular Volume 85 fL (80-100); Mean Platelet Volume 10.5 fL (9.1-12.4); NEUTROPHILS ABSOLUTE AUTO 4.75 K/mm3 (1.96-9.15); NEUTROPHILS PERCENT AUTO 79 % (41-73); Platelet Count 147 K/mm3 (150-400); Red Blood Cell Count 4.26 M/mm3 (3.80-5.20); White Blood Cell Count 5.99 K/mm3 (4.00-11.30)
[2021-08-16 21:25] LABS: Albumin, Blood 3.7 g/dL (3.4-5.0); Albumin/Globulin Ratio 1.1 (0.8-1.8); Bilirubin, Total 0.3 mg/dL (0.1-1.0); Bun/Creatinine Ratio 36.8 (12.0-20.0); Calcium, Blood 8.9 mg/dL (8.5-10.1); Creatinine, Blood 0.82 mg/dL (0.40-1.00); Globulin, Blood 3.4 g/dL (2.2-4.0); Potassium, Blood 3.7 mmol/L (3.5-5.5); Total Protein, Blood 7.1 g/dL (6.4-8.2)
[2021-08-16 21:45] LABS: Magnesium, Blood 1.1 mg/dL (1.6-2.4)
== END 2021-08-17 04:10 | disposition home or self-care (01) ==
LOC: ER 20:43
PROVIDERS: Emergency Medicine
DX: U07.1 COVID-19 (principal); E11.9 Type 2 diabetes mellitus without complications; K21.9 Gastro-esophageal reflux disease without esophagitis; I10 Essential (primary) hypertension; I48.91 Unspecified atrial fibrillation; Z79.899 Other long term (current) drug therapy; Z79.01 Long term (current) use of anticoagulants; Z79.52 Long term (current) use of systemic steroids; Z79.84 Long term (current) use of oral hypoglycemic drugs
CPT/HCPCS: 74177; 80053; 83690; 83735; 84484; 85025; 93005; 93010; 96361; 96365; 96366; 99284-25; J3475; J7030; M0222; Q9967

== ENCOUNTER → 2022-04-30 | Outpatient (CLI) | payer MEDICARE, OTHER | END | disposition home or self-care (01) | LOC: LAB SHORT 15:45 → LAB 15:45 | DX: N30.00 Acute cystitis without hematuria (principal) | CPT/HCPCS: 87086 ==

== ENCOUNTER 2022-06-06 21:37 | Emergency (ER) | payer MEDICARE, OTHER ==
[~2022-06-06] VITALS: Ht 172.7 cm; Wt 49.0 kg
[2022-06-06 22:28] LABS: BASOPHILS ABSOLUTE AUTO 0.02 K/mm3 (0.00-0.23); BASOPHILS PERCENT AUTO 0 % (0-2); EOSINOPHILS ABSOLUTE AUTO 0.03 K/mm3 (0.00-0.68); EOSINOPHILS PERCENT AUTO 0 % (0-6); Hemoglobin 11.2 g/dL (11.5-16.0); IMMATURE GRAN ABSOLUTE AUTO 0.03 K/mm3 (0.00-0.10); IMMATURE GRAN PERCENT AUTO 0 % (0-1); LYMPHOCYTES ABSOLUTE AUTO 1.08 K/mm3 (0.84-5.20); LYMPHOCYTES PERCENT AUTO 15 % (21-46); MONOCYTES PERCENT AUTO 7 % (4-13); Mean Corpuscular HGB 29.6 pg (26.0-34.0); Mean Corpuscular HGB Conc 32.9 g/dL (31.5-36.5); Mean Corpuscular Volume 90 fL (80-100); Mean Platelet Volume 10.7 fL (9.1-12.4); NEUTROPHILS ABSOLUTE AUTO 5.39 K/mm3 (1.96-9.15); NEUTROPHILS PERCENT AUTO 77 % (41-73); Platelet Count 184 K/mm3 (150-400); RDW Coefficient Variation 16.4 % (11.7-14.2); RDW Standard Deviation 54.4 fL (35.1-46.3); Red Blood Cell Count 3.78 M/mm3 (3.80-5.20); White Blood Cell Count 7.05 K/mm3 (4.00-11.30)
[2022-06-06 22:41] LABS: Albumin, Blood 4.3 g/dL (3.4-5.0); Albumin/Globulin Ratio 1.3 (0.8-1.8); Bilirubin, Total 0.3 mg/dL (0.1-1.0); Bun/Creatinine Ratio 17.1 (12.0-20.0); Calcium, Blood 9.6 mg/dL (8.5-10.1); Creatinine, Blood 0.99 mg/dL (0.40-1.00); Globulin, Blood 3.2 g/dL (2.2-4.0); Potassium, Blood 3.9 mmol/L (3.5-5.5); Total Protein, Blood 7.5 g/dL (6.4-8.2)
[2022-06-06 22:53] LABS: Magnesium, Blood 1.9 mg/dL (1.6-2.4)
[2022-06-06 23:12] LABS: Thyroid Stimulating Hormone 1.53 uIU/mL (0.360-4.800)
[2022-06-06 23:32] LABS: Influenza A, PCR NEGATIVE (NEGATIVE); Influenza B, PCR NEGATIVE (NEGATIVE); Resp Syncytial Virus, PCR NEGATIVE (NEGATIVE); SARS-Cov-2 (COVID-19) PCR, MMC NEGATIVE (NEGATIVE)
[2022-06-07 00:30] VITALS: BP 126/86
[2022-06-07] MEDS ORDERED: METO25ER PO (00:48)
[2022-06-07] MEDS ORDERED: SUCR1 PO (00:49)
== END 2022-06-07 01:00 | disposition home or self-care (01) ==
LOC: ER 21:37
PROVIDERS: Student in an Organized Health Care Education/Training Program
DX: I48.91 Unspecified atrial fibrillation (principal); M79.10 Myalgia, unspecified site; R07.9 Chest pain, unspecified; Z79.899 Other long term (current) drug therapy; Z79.84 Long term (current) use of oral hypoglycemic drugs; Z79.82 Long term (current) use of aspirin; K21.9 Gastro-esophageal reflux disease without esophagitis; I10 Essential (primary) hypertension; E11.9 Type 2 diabetes mellitus without complications; Z20.822 Contact with and (suspected) exposure to COVID-19
CPT/HCPCS: 0241U; 36415; 71046; 80053; 83735; 84443; 84484; 85025; 93005; 93010; 96361; 96374; 99285-25; J7030

== ENCOUNTER 2022-11-06 07:43 | Day surgery (SDC) | payer MEDICARE, OTHER ==
[~2022-11-06] VITALS: Ht 172.7 cm; Wt 46.8 kg
[~2022-11-06 07:43] MED LIST changes: +FAMO20 PO; +MEGESTROL400 MG/13 PO; +SUCR1 PO
[2022-11-06] MEDS ORDERED: Oxybutynin Chlor5 M1 PO (08:31)
[2022-11-06] MEDS ORDERED: ELIQUIS2.5 M1 PO (08:31)
--- NOTE | 2022-11-06 08:39 | NUR ---
11/06/22 0839 Ledy Espinoza 1 DROP OF TETRACAINE ADMINISTERED TO THE R EYE AT 0836, PLEDET PLACED IN R EYE AT 0839 BY [facility].[employer]
[2022-11-06 09:43] VITALS: BP 165/101
--- NOTE | 2022-11-06 09:56 | NUR ---
11/06/22 0956 MARJ LYNNE PATIENT UNABLE TO STATE PAIN LEVEL. PATIENT MUMBLES AND DAUGHTER STATES SHE HAS CHRONIC PAIN. IV REMOVED. WNL. CATHERTER INTACT.
== END 2022-11-06 10:10 | disposition home or self-care (01) ==
LOC: ORSCSDS 07:43
PROVIDERS: Student in an Organized Health Care Education/Training Program
PROC: 08RJ3JZ Replacement of Right Lens with Synthetic Substitute, Percutaneous Approach (ICD-10-PCS; principal; 2022-11-06 08:30)
DX: E11.36 Type 2 diabetes mellitus with diabetic cataract (principal); H25.13 Age-related nuclear cataract, bilateral; I10 Essential (primary) hypertension; I48.91 Unspecified atrial fibrillation; F41.9 Anxiety disorder, unspecified; Z86.73 Personal history of transient ischemic attack (TIA), and cerebral infarction without residual deficits; K21.9 Gastro-esophageal reflux disease without esophagitis; Z79.01 Long term (current) use of anticoagulants; Z79.84 Long term (current) use of oral hypoglycemic drugs; Z79.899 Other long term (current) drug therapy
CPT/HCPCS: 82947; J2250; J3010; J7040; V2632

== ENCOUNTER 2023-06-29 16:05 | Emergency (ER) | payer OTHER, MEDICARE ==
[~2023-06-29] VITALS: Ht 172.7 cm; Wt 52.2 kg
[~2023-06-29 16:05] MED LIST changes: +ELIQUIS2.5 M1 PO; +HYDROCODONE-AC1 EAC7 PO; +Oxybutynin Chlor5 M1 PO
[2023-06-29 16:18] VITALS: BP 133/76
== END 2023-06-29 17:33 | disposition home or self-care (01) ==
LOC: ER 16:05
DX: S73.101A Unspecified sprain of right hip, initial encounter (principal); S80.01XA Contusion of right knee, initial encounter; W01.10XA Fall on same level from slipping, tripping and stumbling with subsequent striking against unspecified object, initial encounter; Z79.899 Other long term (current) drug therapy; Z79.84 Long term (current) use of oral hypoglycemic drugs; K21.9 Gastro-esophageal reflux disease without esophagitis; E11.9 Type 2 diabetes mellitus without complications; I48.91 Unspecified atrial fibrillation
CPT/HCPCS: 73502; 73562-RT; 99283-25

== ENCOUNTER 2024-09-12 09:04 | Emergency (ER) | payer MEDICARE, OTHER ==
[~2024-09-12] VITALS: Ht 170.2 cm; Wt 52.2 kg
[2024-09-12] MEDS ORDERED: Robaxin750 MG PO (12:17)
[2024-09-12 13:46] VITALS: BP 133/80
== END 2024-09-12 13:48 | disposition home or self-care (01) ==
LOC: ER 09:04
DX: S42.031A Displaced fracture of lateral end of right clavicle, initial encounter for closed fracture (principal); S01.81XA Laceration without foreign body of other part of head, initial encounter; I10 Essential (primary) hypertension; E11.9 Type 2 diabetes mellitus without complications; I48.91 Unspecified atrial fibrillation; K21.9 Gastro-esophageal reflux disease without esophagitis; Z86.73 Personal history of transient ischemic attack (TIA), and cerebral infarction without residual deficits; Z79.84 Long term (current) use of oral hypoglycemic drugs; Z79.01 Long term (current) use of anticoagulants; Z79.899 Other long term (current) drug therapy; W18.30XA Fall on same level, unspecified, initial encounter
CPT/HCPCS: 70450; 70486; 72125; 73030; 99285-25